=== PATIENT | female | born 1990 | race Caucasian/White ===

== ENCOUNTER 2022-02-27 13:50 | Emergency (ER) | payer OTHER, SELFPAY ==
[2022-02-27 13:59] VITALS: BP 125/91; PULSE 74; RESP 18; TEMP 36.8; O2SAT 99; BMI 27.3
--- NOTE | 2022-02-27 14:11 | DI.US.S_ITS ---
PROCEDURE: US PELVIC COMPLETE INDICATIONS: LEFT PELVIC PAIN; KNOWN CYST TECHNIQUE: Real-time scanning was performed of the pelvic organs, with image documentation. Additional endovaginal scanning was necessary due to incomplete visualization of the adnexal and endometrial structures by transabdominal scanning. COMPARISON: None. FINDINGS: Uterus: Uterus is anteverted and normal in size at 8 x 6.1 x 7.4 cm. The myometrium is homogeneous. The endometrium measures 10 mm combined thickness. There is a 3 x 2.1 x 3.2 cm intramural fibroid seen involving the mid posterior uterus. Ovaries: The right ovary measures 3.6 x 3.3 x 4 cm. The left ovary measures 9 x 7.5 x 11.1 cm and demonstrates a simple cyst within it that measures 8.8 x 7.3 x 10.1 cm. Arterial flow is confirmed to the left ovary. No adnexal masses are seen. Other: No pathologic free abdominal or pelvic fluid. IMPRESSION: Abnormal left ovary, with a 10 cm simple cyst with in it. By history, this is a known finding. If it would be clinically appropriate, a followup pelvic ultrasound could be considered in 6 weeks to assure resolution/ improvement. On these images, no findings left ovarian torsion are seen. 3.2 cm uterine fibroid also noted. We strive to produce accurate, complete, and clear reports of imaging services. To assist us in improving patient care, this report was composed using standard report templates and voice recognition software. Therefore, it may contain abnormal punctuation, insertions and/or omissions. Occasional wrong-word or sound-alike substitutions may occur. Though we review the report and make efforts to correct it, we do recommend that the report be read carefully in proper context to recognize any text inaccuracies. Dictated by: Mina Reid M.D. on 02/27/2022 at 14:58 Approved by: Mina Reid M.D. on 02/27/2022 at 15:00
[2022-02-27 14:42] LABS: Add Manual Diff / Slide Review NO; Alanine Aminotransferase 13 IU/L (<35); Albumin 4.5 g/dL (3.5-5.0); Albumin Globulin Ratio 1.4 (1.0-2.8); Alkaline Phosphatase 60 U/L (38-126); Aspartate Aminotransferase 23 IU/L (14-36); BUN Creatinine Ratio 15.8 (6-22); Basophils Absolute Auto 0 /uL (0-100); Basophils Percent Auto 0.2 % (0-2); Bilirubin Total 0.5 mg/dL (0.2-1.3); Blood Urea Nitrogen 12 mg/dL (7-17); Calcium 9.4 mg/dL (8.4-10.2); Carbon Dioxide 25 mmol/L (22-32); Chloride 105 mmol/L (98-107); Eosinophils Absolute Auto 100 /uL (0-450); Eosinophils Percent Auto 1.4 % (2-4); Estimated Glomerular Filt Rate > 60.0 mL/min (>60); Globulin 3.2 g/dL (1.7-4.1); Glucose 98 mg/dL (70-100); HEMOLYSIS < 15 (0-50); Hematocrit 38.5 % (36-46); Hemoglobin 13.2 g/dL (12.0-16.0); Lipase 158 U/L (23-300); Lymphocytes Absolute Auto 2300 /uL (1100-4500); Lymphocytes Percent Auto 43.6 % (25-40); Mean Corpuscular HGB Conc 34.4 % (30-36); Mean Corpuscular Hemoglobin 30.2 PG (26-34); Mean Corpuscular Volume 87.8 fL (80-100); Monocytes Absolute Auto 400 /uL (0-900); Monocytes Percent Auto 6.6 % (3-14); Neutrophils Absolute Auto 2600 /uL (1500-7000); Neutrophils Percent Auto 48.2 % (50-75); Platelet Count 199 X10^3/uL (150-400); Potassium 3.5 mmol/L (3.4-5.1); Red Blood Cell Count 4.38 X10^6/uL (4.0-5.2); Red Cell Distribution Width 12.7 % (11.6-14.8); Sodium 140 mmol/L (137-145); Total Protein 7.7 g/dL (6.3-8.2); White Blood Cell Count 5.4 X10^3/uL (4.5-11.0)
--- NOTE | 2022-02-27 16:31 | ED.FEMALEGU ---
HPI - Female Genitourinary <MANN RendonP - Last Filed: 02/27/22 19:59> General Chief complaint: Urogenital-Female Stated complaint: Thinks ovarian cyst burst Time Seen by Provider: 02/27/22 16:19 Source: patient Mode of arrival: Ambulatory History of Present Illness HPI Narrative: 31-year-old female who is 8 months with a full-term vaginal delivery of a healthy 8-month-old girl presents to the emergency department for left pelvic pain with known left ovarian cyst measuring 10 cm at last ultrasound. Patient states that this cyst was visualize when she was 10 weeks , and had been monitored during . Patient was instructed to go to the emergency department if he develops any worsening of her pain on the left. Her last menstrual period started on 02/22/2022, she states that her periods have been regular since her delivery when these started. She is not currently . Patient states she is allergic to see the medicine, she took 400 mg of ibuprofen this morning. Patient states JADIEL is at [facility] in [place], [place]. She states that there has not been any plan in place for drainage or any medication to treat this cyst. She states that there has just been watchful waiting to see if it goes down with her normal menstrual cycle. Patient states that she is on the tail end of her menses, she denies any , denies any recent fever, trauma. She states that her left lower quadrant pain has been present for a few days and worsening in pain with all movements. She states some mild nausea but no vomiting. She states the last thing she ate was a banana at 13:00. Related Data Home Medications Medication Instructions Recorded Confirmed rimegepant 75 mg disintegrating 75 mg PO ONCE PRN 02/28/22 03/01/22 tablet (Nurtec ODT) cyclobenzaprine 10 mg tablet 10 mg PO PRN PRN 03/01/22 03/01/22 Previous Rx's Medication Instructions Recorded ondansetron 4 mg disintegrating 4 mg PO Q8H PRN #14 tab 02/27/22 tablet oxycodone 5 mg tablet 5 mg PO BID PRN #14 tab 02/27/22 polyethylene glycol 3350 17 17 g PO DAILY 7 Days #119 g 02/27/22 gram/dose oral powder (Miralax) oxycodone 5 mg tablet 5 mg PO Q4H PRN #20 tab 03/01/22 Allergies Allergy/AdvReac Type Severity Reaction Status Date / Time acetaminophen AdvReac Migraine Verified 03/01/22 06:45 Review of Systems <JOSE M Rendon - Last Filed: 02/27/22 19:59> Review of Systems Narrative: General: denies fever, chills Head/Neck: denies headache, neck pain Eyes: denies visual changes, eye pain Cardio: denies chest pain, palpitations Respiratory: denies shortness of breath, cough GI: Endorses left lower quadrant/pelvic abdominal pain with nausea, denies any vomiting, or diarrhea : denies dysuria, hematuria MSK: denies joint pain, muscle weakness Skin: denies rash, itching Neuro: denies numbness, tingling Patient History <JOSE M Rendon - Last Filed: 02/27/22 19:59> Substance Use Type: does not use Exam <JOSE M Rendon Last Filed: 02/27/22 19:59> Narrative Exam Narrative: Independently reviewed vitals signs and nursing notes. General: Awake, alert, nontoxic, no cardiorespiratory distress, afebrile Head/Neck: Atraumatic, neck full range of motion Eyes: EOMI, conjunctiva normal Nose: nares patent, no rhinorrhea Mouth/Throat: moist mucus membranes, no oral lesions Cardio: Regular rate and rhythm, no peripheral edema Respiratory: respirations unlabored without wheezing, stridor, or rales. No retractions. GI: Abdomen soft, tender to palpation over left ovary, no CVA tenderness, no guarding or rebound, patient is lying in the left lateral recumbent position for comfort MSK: Moves all extremities, neurovascularly intact Skin: Normal capillary refill, no rash Neuro: Normal speech and cognition, normal gait Initial Vital Signs Initial Vital Signs: Vital Signs Temperature 98.3 F 02/27/22 13:59 Pulse Rate 74 02/27/22 13:59 Respiratory Rate 18 02/27/22 13:59 Blood Pressure 125/91 H 02/27/22 13:59 Pulse Oximetry 99 02/27/22 13:59 <Margret Dyson DO - Last Filed: 03/03/22 02:39> Initial Vital Signs Initial Vital Signs: Vital Signs Temperature 98.3 F 02/27/22 13:59 Pulse Rate 74 02/27/22 13:59 Respiratory Rate 18 02/27/22 13:59 Blood Pressure 125/91 H 02/27/22 13:59 Pulse Oximetry 99 02/27/22 13:59 Course <JOSE M Rendon - Last Filed: 02/27/22 19:59> Orders Ordered: Discontinued Medications Hydromorphone HCl (Hydromorphone 0.5 Mg Inj) 0.5 mg IV NOW ONE Stop: 02/27/22 16:38 Last Admin: 02/27/22 16:50 Dose: 0.5 mg Documented by: JENNIFER Ketorolac Tromethamine (Ketorolac 30 Mg/Ml Vial) 15 mg IV NOW ONE Stop: 02/27/22 16:38 Last Admin: 02/27/22 16:50 Dose: 15 mg Documented by: JENNIFER Ondansetron HCl (Ondansetron 4 Mg/2 Ml Inj) 4 mg IV NOW ONE Stop: 02/27/22 16:38 Last Admin: 02/27/22 16:50 Dose: 4 mg Documented by: JENNIFER Vital Signs Vital signs: Vital Signs - 8 hr 02/27/22 13:59 02/27/22 17:35 Temperature 98.3 F Pulse Rate 74 50 L Respiratory Rate 18 18 Blood Pressure 125/91 H 118/75 Pulse Oximetry 99 99 <Margret Dyson DO - Last Filed: 03/03/22 02:39> Orders Ordered: Discontinued Medications Hydromorphone HCl (Hydromorphone 0.5 Mg Inj) 0.5 mg IV NOW ONE Stop: 02/27/22 16:38 Last Admin: 02/27/22 16:50 Dose: 0.5 mg Documented by: JENNIFER Ketorolac Tromethamine (Ketorolac 30 Mg/Ml Vial) 15 mg IV NOW ONE Stop: 02/27/22 16:38 Last Admin: 02/27/22 16:50 Dose: 15 mg Documented by: JENNIFER Ondansetron HCl (Ondansetron 4 Mg/2 Ml Inj) 4 mg IV NOW ONE Stop: 02/27/22 16:38 Last Admin: 02/27/22 16:50 Dose: 4 mg Documented by: JENNIFER Vital Signs Vital signs: Vital Signs - 8 hr 02/27/22 13:59 02/27/22 17:35 Temperature 98.3 F Pulse Rate 74 50 L Respiratory Rate 18 18 Blood Pressure 125/91 H 118/75 Pulse Oximetry 99 99 MDM - Female Genitourinary <Jacquie Dwayne Goyal, [facility] - Last Filed: 02/27/22 19:59> Lab Data Result diagrams: 02/27/22 14:20 02/27/22 14:20 Labs: Lab Results 02/27/22 02/27/22 Range/Units 14:20 14:20 WBC 5.4 (4.5-11.0) X10^3/uL RBC 4.38 (4.0-5.2) X10^6/uL Hgb 13.2 (12.0-16.0) g/dL Hct 38.5 (36-46) % MCV 87.8 (80-100) fL MCH 30.2 (26-34) PG MCHC 34.4 (30-36) % RDW 12.7 (11.6-14.8) % Plt Count 199 (150-400) X10^3/uL Neut % (Auto) 48.2 L (50-75) % Lymph % (Auto) 43.6 H (25-40) % Dewitt % (Auto) 6.6 (3-14) % Eos % (Auto) 1.4 L (2-4) % Baso % (Auto) 0.2 (0-2) % Neut # (Auto) 2600 (1304-1602) /uL Lymph # (Auto) 2300 (4595-0755) /uL Dewitt # (Auto) 400 (0-900) /uL Eos # (Auto) 100 (0-450) /uL Baso # (Auto) 0 (0-100) /uL Sodium 140 (137-145) mmol/L Potassium 3.5 (3.4-5.1) mmol/L Chloride 105 (98-107) mmol/L Carbon Dioxide 25 (22-32) mmol/L BUN 12 (7-17) mg/dL Creatinine 0.76 (0.52-1.04) mg/dL Estimated GFR > 60.0 (>60) mL/min BUN/Creatinine Ratio 15.8 (6-22) Glucose 98 (70-100) mg/dL Calcium 9.4 (8.4-10.2) mg/dL Total Bilirubin 0.5 (0.2-1.3) mg/dL AST 23 (14-36) IU/L ALT 13 (<35) IU/L Alkaline Phosphatase 60 (38-126) U/L Total Protein 7.7 (6.3-8.2) g/dL Albumin 4.5 (3.5-5.0) g/dL Globulin 3.2 (1.7-4.1) g/dL Albumin/Globulin Ratio 1.4 (1.0-2.8) Lipase 158 (23-300) U/L Point of Care Testing Test Results Negative Urine Dip Bedside Urine Glucose Negative Bedside Urine Bilirubin - Negative Bedside Urine Ketone - Negative Urine Specific [place] 1.015 Bedside Urine Occult Blood - Negative Bedside Urine pH 8.0 Bedside Urine Protein - Negative Bedside Urine Urobilinogen - Negative Bedside Urine Nitrite - Negative Bedside Urine Leukocytes - Negative Esterase Imaging Data US - ADAPTIVE PHYSICAL EDUCATION SPECIALIST: Radiologist's Impression: PROCEDURE:? US PELVIC COMPLETE ? INDICATIONS:? LEFT PELVIC PAIN; KNOWN CYST ? TECHNIQUE:? Real-time scanning was performed of the pelvic organs, with image documentation.? Additional endovaginal scanning was necessary due to incomplete visualization of the adnexal and endometrial structures by transabdominal scanning.? ? COMPARISON:? None. ? FINDINGS:? ?? Uterus:? Uterus is anteverted and normal in size at 8 x 6.1 x 7.4 cm. The myometrium is homogeneous. ? The endometrium measures 10 mm combined thickness.? There is a 3 x 2.1 x 3.2 cm intramural fibroid seen involving the mid posterior uterus. ? Ovaries:? The right ovary measures 3.6 x 3.3 x 4 cm. The left ovary measures 9 x 7.5 x 11.1 cm and demonstrates a simple cyst within it that measures 8.8 x 7.3 x 10.1 cm.? Arterial flow is confirmed to the left ovary.? No adnexal masses are seen. ? Other:? No pathologic free abdominal or pelvic fluid. ? ? IMPRESSION:? Abnormal left ovary, with a 10 cm simple cyst with in it.? By history, this is a known finding.? If it would be clinically appropriate, a followup pelvic ultrasound could be considered in 6 weeks to assure resolution/ improvement.? ? On these images, no findings left ovarian torsion are seen.? ? 3.2 cm uterine fibroid also noted. ? We strive to produce accurate, complete, and clear reports of imaging services. To assist us in improving patient care, this report was composed using standard report templates and voice recognition software. Therefore, it may contain abnormal punctuation, insertions and/or omissions. Occasional wrong-word or sound-alike substitutions may occur. Though we review the report and make efforts to correct it, we do recommend that the report be read carefully in proper context to recognize any text inaccuracies. ? ? Dictated by: Mina Reid M.D. on 02/27/2022 at 14:58 ? ? Approved by: Mina Reid M.D. on 02/27/2022 at 15:00 ? MDM Narrative Medical decision making narrative: This is a 31-year-old female presents to the emergency department with left ovarian cyst pain which has been worsening over the last 24 hours. Patient states that she has a known 10 mm left ovarian cyst that originally was found during her at 10 weeks, she is 8 months with a healthy child. She states that this was going to be surgically removed with her scheduled but she instead had the vaginal delivery and her in her OBGYN have been monitoring this cyst over the last few months. She was instructed if she has any worsening pain to come to the emergency department. She denies any fever, endorses nausea without any vomiting, denies any abnormal vaginal discharge states that she is on her last day of her menses currently. She has had regular menses since this started after delivery. She was given Zofran, 0.5 mg of Dilaudid, 15 mg of IV Toradol with marked improvement in her pain. She is allergic to acetaminophen. Pelvic Ultrasound today shows a left ovary with a 8.8 x 7.3 x 10.1 cm simple cyst as well as a 3.2 cm uterine fibroid. No ovarian torsion was seen. Due to patient's significant pain today and tenderness on exam I consulted Dr. Aguilar. Dr. Aguilar arranged for patient to meet her in the office at noon on 02/28/2022, for an evaluation for surgical removal of her left ovarian cyst. Patient understands this, she was given strict return precautions for any worsening pain, bloody vaginal discharge, any nausea vomiting which is not improve, she was given a prescription for oxycodone, Zofran, understands to follow-up with Dr. Aguilar tomorrow and will be scheduled for surgery accordingly. Lab work today is grossly only remarkable, no leukocytosis, no electrolyte abnormalities, no anemia. Patient is appropriate and amenable to discharge home. Vital signs are stable on repeat examination is unremarkable. Patient has been informed of results. Patient has been given strict return to ER precautions for any new or worsening symptoms. Patient understands to follow up closely with outpatient providers as instructed. Patient understands plan and agrees to discharge home. All questions and concerns answered at this time. <Margret Dyson DO - Last Filed: 03/03/22 02:39> Lab Data Labs: Lab Results 02/27/22 02/27/22 Range/Units 14:20 14:20 WBC 5.4 (4.5-11.0) X10^3/uL RBC 4.38 (4.0-5.2) X10^6/uL Hgb 13.2 (12.0-16.0) g/dL Hct 38.5 (36-46) % MCV 87.8 (80-100) fL MCH 30.2 (26-34) PG MCHC 34.4 (30-36) % RDW 12.7 (11.6-14.8) % Plt Count 199 (150-400) X10^3/uL Neut % (Auto) 48.2 L (50-75) % Lymph % (Auto) 43.6 H (25-40) % Dewitt % (Auto) 6.6 (3-14) % Eos % (Auto) 1.4 L (2-4) % Baso % (Auto) 0.2 (0-2) % Neut # (Auto) 2600 (2274-4890) /uL Lymph # (Auto) 2300 (7667-2939) /uL Dewitt # (Auto) 400 (0-900) /uL Eos # (Auto) 100 (0-450) /uL Baso # (Auto) 0 (0-100) /uL Sodium 140 (137-145) mmol/L Potassium 3.5 (3.4-5.1) mmol/L Chloride 105 (98-107) mmol/L Carbon Dioxide 25 (22-32) mmol/L BUN 12 (7-17) mg/dL Creatinine 0.76 (0.52-1.04) mg/dL Estimated GFR > 60.0 (>60) mL/min BUN/Creatinine Ratio 15.8 (6-22) Glucose 98 (70-100) mg/dL Calcium 9.4 (8.4-10.2) mg/dL Total Bilirubin 0.5 (0.2-1.3) mg/dL AST 23 (14-36) IU/L ALT 13 (<35) IU/L Alkaline Phosphatase 60 (38-126) U/L Total Protein 7.7 (6.3-8.2) g/dL Albumin 4.5 (3.5-5.0) g/dL Globulin 3.2 (1.7-4.1) g/dL Albumin/Globulin Ratio 1.4 (1.0-2.8) Lipase 158 (23-300) U/L Point of Care Testing Test Results Negative Urine Dip Bedside Urine Glucose Negative Bedside Urine Bilirubin - Negative Bedside Urine Ketone - Negative Urine Specific [place] 1.015 Bedside Urine Occult Blood - Negative Bedside Urine pH 8.0 Bedside Urine Protein - Negative Bedside Urine Urobilinogen - Negative Bedside Urine Nitrite - Negative Bedside Urine Leukocytes - Negative Esterase Discharge Plan Departure Patient Disposition: Home Clinical Impression: Ovarian cyst Qualifiers: Laterality: left Qualified Code(s): N83.202 - Unspecified ovarian cyst, left side Instructions: Ovarian Cyst, DI for Ovarian Cyst Removal Activity Restrictions/Additional Instructions: *You have been diagnosed with a left ovarian cyst measuring 8.8 x 7.3 x 10.1 cm with a uterine fibroid measuring 3.0 x 2.1 x 3.2 cm. Please follow-up with Dr. Aguilar tomorrow at noon in her office. Go through the main hospital entrance. Please take 1 oxycodone every 6-8 hours as needed for pain, you may take ibuprofen starting tomorrow morning, 600 mg every 6 hours. Please take these medicines with food and water. If your pain is not controlled with 1 oxycodone, and you did not become too tired, you may combine intake another dose after you have tried 1 dose at a time. Please take Zofran every 8 hours as necessary for nausea and or vomiting. Please do not do any aerobic activity, and take it easy for the next few days until surgery. Any major movement could potentially cause ovarian torsion, please return to the emergency department if you have worsening pain, nausea vomiting, vaginal bleeding, or any new concerning symptoms. Thank you for trusting us with your care, I hope everything goes well. *What to do: *Please continue to take your regular medications as directed. [x ] New medication prescriptions sent to your pharmacy: [[facility] ] [ ] New medication written as a paper prescription [ ] No new medications given *Please follow up with your primary care provider in 2-3 days, call for an appointment. Let them know you were seen in the Emergency Department and that we asked that you be seen for follow-up. We will electronically transmit a record of today's note if your PCP is in our system *If you do not have a primary care provider please contact [phone] to establish care with one of the [facility] primary care providers. *Return to Emergency Department if you should have any new, worsening or concerning symptoms, such as [fever greater than 101F, chills, worsening pain, persistent vomiting or other bothersome symptoms] Prescriptions: New oxycodone 5 mg tablet 5 mg PO BID PRN (Reason: pain) Qty: 14 0RF ondansetron 4 mg tablet,disintegrating 4 mg PO Q8H PRN (Reason: nausea and vomiting) Qty: 14 0RF Label Comments: for migraines polyethylene glycol 3350 [Miralax] 17 gram/dose powder 17 g PO DAILY 7 Days Qty: 119 0RF No Action Nurtec ODT 75 mg tablet,disintegrating 75 mg PO ONCE PRN (Reason: Migraine Headache) 0RF Rx Instructions: as a single dose cyclobenzaprine 10 mg tablet 10 mg PO PRN PRN (Reason: migranes) 0RF oxycodone 5 mg tablet 5 mg PO Q4H PRN (Reason: pain) Qty: 20 0RF Referrals: Valentina Aguilar MD [Physician] - As soon as possible <Margret Dyson DO - Last Filed: 03/03/22 02:39> Cosign ED Attending Kittyature Attestation: I was immediately available in the department for consultation. Documentation has been reviewed. Case was discussed imaging was reviewed call residential construction instructor was consulted patient has follow-up in the next 12 hours for [id number] evaluation for surgical consultation and removal of left ovarian cyst potentially tomorrow with strict return precautions to return if worsening symptoms.
[2022-02-27] MEDS: ONDANSETRON 4 MG/2 ML INJ IV (16:50)
[2022-02-27] MEDS: KETOROLAC 30 MG/ML VIAL 15 MG IV (16:50)
[2022-02-27] MEDS: HYDROMORPHONE 0.5 MG INJ IV (16:50)
[2022-02-27 17:35] VITALS: BP 118/75; PULSE 50; RESP 18; O2SAT 99
== END 2022-02-27 17:40 | disposition home or self-care (01) ==
PROVIDERS: Emergency Medicine; Emergency Provider Nurse Practitioner Critical Care Medicine
DX: N83.202 Unspecified ovarian cyst, left side (principal); D25.1 Intramural leiomyoma of uterus
CPT/HCPCS: 36415; 76830; 76856; 80053; 81003; 81025; 83690; 85025; 96374; 96375; 99284; J1170; J1885; J2405

== ENCOUNTER → 2022-02-28 12:57 | Outpatient (CLI) | payer OTHER, SELFPAY ==
[2022-02-28 13:43] LABS: COVID19 -Nasal RAPID Negative (Negative)
== END ==
PROVIDERS: PCP Dermatology; Referring Provider Obstetrics & Gynecology; Visit Provider Obstetrics & Gynecology
DX: Z20.822 Contact with and (suspected) exposure to COVID-19 (principal); Z01.812 Encounter for preprocedural laboratory examination
CPT/HCPCS: 87635

== ENCOUNTER 2022-03-01 06:34 | Day surgery (SDC) | payer OTHER, SELFPAY ==
[2022-02-28 14:42] VITALS: BMI 27.3
[2022-03-01] VITALS (9 sets, daily range): BP systolic 107–116; BP diastolic 60–77; PULSE 58–79; RESP 12–16; TEMP 36.1–36.9; O2SAT 95–100; BMI 27.3
--- NOTE | 2022-03-01 | PATH_ITS ---
Note [facility] Accession Number: [id number] TESTS RESULT FLAG UNITS REF RANGE LAB Clinician Provided Cytology Information No. of containers..01 Other (Miscellaneous) Source: LEFT OVARIAN CYST FLUID DIAGNOSIS: LEFT OVARIAN CYST FLUID NEGATIVE FOR MALIGNANT CELLS. SCANT CELLULARITY. THIS INTERPRETATION INCLUDES EVALUATION OF A CELL BLOCK. Pathologist ICD10: 01 N83.292 Signed out by: Maia Kemp MD, Pathologist NPI- [id number] Performed by: Jarod De Los Santos, Political Advisor ([facility]) Gross description: 40 CC, YELLOW, CLEAR RECEIVED: FRESH IN ORANGE CAP CONTAINER. /[facility] 03/02/2022 1005 Local FLAG LEGEND: L-Low Normal,H-High Normal,LL-Alert Low,HH-Alert High <-Panic Low,>-Panic High,A-Abnormal,AA-Critical Abnormal Performed at: 01 =Z [facility] [address] [place] [address] [address], [place] [address] Jaron Castrejon MD, Performed at: 01 [facility] [address], [place], [place] [id number] MD Jaron Castrejon MD Phone: [phone]
[2022-03-01] MEDS: SCOPOLAMINE 1 PATCH TOP (07:12)
[2022-03-01] MEDS: LACTATED RINGERS 1,000 ML 100 ML IV (07:13)
--- NOTE | 2022-03-01 07:53 | PM.HP.1 ---
History of Present Illness History of Present Illness Date Patient Seen: 03/01/22 Time Patient Seen: 07:54 Chief complaint: LAP REMOVAL OF LEFT OVARIAN CYST Narrative: Patient is a 31-year-old 1 para 1 with a 10 cm left ovarian cyst. She presents for laparoscopic removal of the left ovarian cyst. Patient History Family & Social History Social History: household members spouse,children Tobacco & Substance use: Smoking Status Never smoker alcohol intake never Substance Use Type does not use Meds Home Medications and Allergies Home Medications Medication Instructions Recorded Confirmed Type ondansetron 4 mg disintegrating 4 mg PO Q8H PRN #14 tab 02/27/22 03/01/22 Rx tablet oxycodone 5 mg tablet 5 mg PO BID PRN #14 tab 02/27/22 03/01/22 Rx polyethylene glycol 3350 17 17 g PO DAILY 7 Days #119 g 02/27/22 03/01/22 Rx gram/dose oral powder (Miralax) rimegepant 75 mg disintegrating 75 mg PO ONCE PRN 02/28/22 03/01/22 History tablet (Nurtec ODT) cyclobenzaprine 10 mg tablet 10 mg PO PRN PRN 03/01/22 03/01/22 History Allergies Allergy/AdvReac Type Severity Reaction Status Date / Time acetaminophen AdvReac Migraine Verified 03/01/22 06:45 Exam Vital Signs (past 8 hours): - 03/01/22 06:56 Temperature 97.2 F L Pulse Rate 79 Respiratory Rate 16 Blood Pressure 115/77 Pulse Oximetry 98 Oxygen Delivery Method Room Air Narrative Exam Narrative: HEENT: No thyromegaly, no anterior cervical or supraclavicular lymphadenopathy. Lungs:Clear to auscultation bilaterally, no wheezes. Cardiovascular: Regular rate and rhythm, no murmurs, rubs, or gallops. Abdomen: No scars. No hepatosplenomegaly. No masses palpable. External genitalia: Normal Vagina: Normal Cervix: Parous Bimanual exam: 6 Week size uterus. Mobile. Left adnexal fullness and tenderness. No right adnexal masses or tenderness. Assessment & Plan Assessment & Plan narrative: Assessment: 31-year-old 1 para 1 with a 10 cm left ovarian cyst Plan: Laparoscopic removal of the left ovarian cyst The risks, benefits, and alternatives to the procedure were explained to the patient. The risks including bleeding, infection, injury to the bowel, bladder, or ureters. She understands these risks and agrees to proceed. A full par Q was held and consent form was signed. COVID-19 COVID-19 status: Negative Result date/Date tested (Pos, Neg/Pending): 02/28/22 Time Spent With Patient Time with patient: less than 30 minutes Critical Care time: I spent a total of [] minutes of critical care time on this patient's care today; this time is exclusive of procedural time.
--- NOTE | 2022-03-01 07:56 | PM.PREOP ---
Pre-operative Note COVID-19 COVID-19 status: Negative Result date/Date tested (Pos, Neg/Pending): 02/28/22 Criteria for continued procedure: Non-surgical alternatives not available or appropriate per current SOC Interval Note History & Physical reviewed/Exam performed by Physician: Yes Changes to H&P: No H&P completed within 30 days and has changed as indicated here:: 03/01/22
--- NOTE | 2022-03-01 08:22 | SUR.OPER ---
Lithotomy on padded OR bed, head on pillow, arms secured on padded arm boards at <90 degrees abduction. Legs secured in padded yellow fins stirrups.
[2022-03-01] MEDS: BUPIVACAINE 0.5% (PF) 30 ML, EPINEPHrine 0.15 MG INJ (08:27)
--- NOTE | 2022-03-01 10:01 | P.OP_ITS ---
Operative Date/Time/Diagnoses Date of procedure: 03/01/22 Time of procedure: 10:01 Pre-op diagnosis: 10 cm left ovarian cyst Post-op diagnosis: same Procedure & Clinicians Procedure: Procedures Operation Date: 03/01/22 07:45 Actual Procedure Side Surgeon p Laparoscopic Ovarian Cystectomy Left Valentina Aguilar MD Indications: 10cm left ovarian cyst Surgeon: Valentina Aguilar Grain Cleaner And Transfer Operator: Gina Goncalves Anesthesia Type: General and Local Operative Notes Findings: 13 cm left ovarian cyst Normal tubes and right ovary Normal liver and gallbladder Normal appendix Closure Type: primary Specimen(s): other (left ovarian cyst wall and cyst fluid to cytology) Applied: catheter (in/out) Estimated blood loss (mL): 10 Blood products transfused: none Procedure in detail: After informed consent was obtained, the patient was taken to the operating room where she was placed in the dorsal supine position. After adequate general endotracheal anesthesia was achieved, she was placed in the dorsal lithotomy position, and prepped and draped in the usual sterile fashion. A time-out was performed. A bivalve speculum was placed into the vagina. A single-tooth tenaculum was placed on the anterior lip of the cervix. The cervical os was sequentially dilated until the Zumi uterine manipulator could pass easily into the endometrial cavity. The single-tooth tenaculum was removed from the anterior lip of the cervix. The bivalve speculum was removed from the vagina. Attention was then turned to the abdomen where 6 cc of 0.5% Marcaine with epinephrine were injected in the umbilical fold. A 5 mm incision was made. The Veress needle was placed into the peritoneal cavity, and its placement confirmed by aspiration and drop test. The abdominal cavity was insufflated with 3.2 L of CO2. The Veress needle was removed and a 5 mm trocar was placed without difficulty. Two other 5 mm incisions were made after 6 cc of 0.5% Marcaine with epinephrine were injected, 4 cm lateral to each side of the midline at the level of the umbilicus. Two 5 mm trocars were placed under direct visualization. The pelvis and abdomen were examined with findings noted above. The left ovarian cyst was grasped with an atraumatic grasper. Using the aspirate or, 400 cc of clear yellow fluid were aspirated from the cyst. Using the Endo Bernardo, an incision was made through the cyst wall. The cyst wall was grasped with an atraumatic grasper. With counter tension the cyst wall was peeled from the underlying ovary. At 1 point the cyst turned inside out and the remaining cyst wall was removed and sent to pathology. There was no bleeding noted. The area was irrigated with warm normal saline. Hemostasis was achieved. The instruments were removed from the abdomen. The CO2 was allowed to escape. The incisions were repaired with 4-0 Monocryl in a subcuticular fashion. Steri- Strips and Allevyn dressings were placed. The Zumi uterine manipulator was removed from the uterus. Sponge, lap, and instrument counts were correct x2. The patient tolerated the procedure well, and was taken to PACU in stable condition. Complications: none Post-operative Condition: stable Disposition: PACU Plan for aftercare: Home after recovery
== END 2022-03-01 10:50 | disposition home or self-care (01) ==
PROVIDERS: PCP Dermatology; Referring Provider Obstetrics & Gynecology; Visit Provider Obstetrics & Gynecology
PROC: (CPT 58661; principal; 2022-03-01 07:45)
DX: N83.292 Other ovarian cyst, left side (principal)
CPT/HCPCS: 58662; 81025; 82962; J0171; J0330; J1100; J1885; J2250; J2405; J2704; J3010